=== PATIENT | male | born 1950 | race Caucasian/White ===

== ENCOUNTER 2023-04-09 15:25 | Emergency (ER) | payer MEDICARE, OTHER, SELFPAY ==
[2023-04-09 15:25] VITALS: BP 185/91; PULSE 68; RESP 14; TEMP 36.4; O2SAT 99
--- NOTE | 2023-04-09 15:28 | DI.CT.S_ITS ---
PROCEDURE: CT ANGIO HEAD AND NECK INDICATIONS: slurred speach TECHNIQUE: After the administration of intravenous contrast, 1 mm thick sections acquired from the aortic arch through the [place]. 3-dimensional jsiokzs-rmmwnaqsr-hqwfbxgsvp (MIP) and/or volume rendering reformats were acquired of the central intracranial vasculature and neck separately. For radiation dose reduction, the following was used: automated exposure control, adjustment of mA and/or kV according to patient size. COMPARISON: None. FINDINGS: Image quality: Diagnostic. BRAIN: CSF spaces: Ventricles are normal in size and shape. Basal cisterns are patent. No extra-axial fluid collections. Brain: No significant abnormality of the brain can be seen. Skull and face: Calvarium and facial bones appear intact, without suspicious lesions. Orbits appear normal. Sinuses: Sinuses and mastoids are clear. HEAD CT ANGIOGRAPHY: Anterior circulation: Intracranial internal carotid arteries are normal in size and flow. The flow within the paired anterior cerebral arteries is normal and symmetric. The flow within the middle cerebral arteries is normal and symmetric. The anterior communicating artery is seen. No aneurysms are seen. Posterior circulation: Visualized portions of the vertebral arteries demonstrate normal caliber, and join to form a normal appearing basilar artery. Flow within the posterior cerebral arteries is normal and symmetric. No aneurysms are seen. NECK CT ANGIOGRAPHY: Carotid system: The great vessels demonstrate a conventional anatomy as they arise from the aortic arch. The origins of the common carotid arteries appear patent. The common carotid arteries demonstrate normal caliber and courses. The bifurcation regions are both widely patent. The internal carotid arteries demonstrate normal calibers and courses. Posterior circulation: The origins of the vertebral arteries both appear widely patent. The more superior extracranial portions of both vertebral arteries also demonstrate normal courses and calibers. They join to form a normal appearing basilar artery. Soft tissues: Visualized neck soft tissues demonstrate no suspicious abnormalities. Bones: No suspicious bony lesions. Visualized cervical spine appears normally aligned. IMPRESSION: No large vessel occlusion. Findings discussed with Dr. Farias at 3:58 p.m. On 04/09/2023. Any quantitative measurements of stenosis were performed using NASCET criteria. Dictated by: Bautista Wolfe M.D. on 04/09/2023 at 15:56 Approved by: Bautista Wolfe M.D. on 04/09/2023 at 15:59
--- NOTE | 2023-04-09 15:28 | DI.CT.S_ITS ---
PROCEDURE: CT STROKE INDICATIONS: slurred speach TECHNIQUE: Noncontrast 4.5 mm thick angled axial sections acquired from the foramen magnum to the vertex, with coronal reformats. For radiation dose reduction, the following was used: automated exposure control, adjustment of mA and/or kV according to patient size. COMPARISON: None. FINDINGS: Image quality: Diagnostic. CSF spaces: Basal cisterns are patent. No extra-axial fluid collections. The ventricles are symmetric in size and shape. Brain: No intracranial bleeds or masses. There is cerebral volume loss for age, with resultant ventricular and sulcal prominence. Question a old lacunar infarct in the left basal ganglia. There are periventricular and deep white matter chronic small vessel ischemic changes. There is intracranial internal carotid artery atherosclerosis. Skull and face: Calvarium and visualized facial bones appear intact, without suspicious lesions. Sinuses: Visualized sinuses and mastoids are clear. IMPRESSION: No acute intracranial pathology. The result was discussed with Dr. Figueroa in ER. This study fulfills neurological imaging criteria for inclusion or exclusion of acute stroke therapies based on available published neurological guidelines. Dictated by: Corina Tena M.D. on 04/09/2023 at 15:44 Approved by: Corina Tena M.D. on 04/09/2023 at 15:47
[2023-04-09 15:31] VITALS: BP 185/91; PULSE 69; RESP 20; O2SAT 97
[2023-04-09 15:40] LABS: Add Manual Diff / Slide Review NO; Basophils Absolute Auto 100 /uL (0-100); Basophils Percent Auto 0.8 % (0-2); Eosinophils Absolute Auto 300 /uL (0-450); Eosinophils Percent Auto 4.5 % (2-4); Hematocrit 40.3 % (41-53); Hemoglobin 14.1 g/dL (13.5-17.5); Lymphocytes Absolute Auto 2800 /uL (1100-4500); Lymphocytes Percent Auto 40.2 % (25-40); Mean Corpuscular HGB Conc 34.9 % (30-36); Mean Corpuscular Volume 88.8 fL (80-100); Monocytes Absolute Auto 800 /uL (0-900); Monocytes Percent Auto 11.2 % (3-14); Neutrophils Absolute Auto 3000 /uL (1500-7000); Neutrophils Percent Auto 43.3 % (50-75); Platelet Count 193 X10^3/uL (150-400); Red Blood Cell Count 4.54 X10^6/uL (4.5-5.9); Red Cell Distribution Width 13.6 % (11.6-14.8); White Blood Cell Count 6.9 X10^3/uL (4.5-11.0)
[2023-04-09 15:51] VITALS: BP 184/90; PULSE 73; RESP 23; O2SAT 99
--- NOTE | 2023-04-09 15:51 | ED.NEUROSD ---
HPI - Neuro Symptoms/Deficit General Chief Complaint: Neuro Symptoms/Deficit Stated Complaint: states stroke hx of stroke Time Seen by Provider: 04/09/23 15:28 Source: patient and family Mode of arrival: Wheelchair History of Present Illness HPI Narrative: Patient is a 72-year-old male. Has had a history of a stroke several years ago. No residual deficits from that. Has a history of coronary artery disease. Had a coronary artery bypass graft several years ago as well. Currently takes no prescribed medications. He is doing ?metal chelation ?therapy under the care of his doctor. He was at his normal state of health. He was at lunch when he states he had a fairly sudden onset of coordination issues with his left arm in his left leg. He states he felt like he was leaning to the left. There was no reported change in speech. No facial droop. He denies headache. No vision changes. Arrived in the emergency department approximately 15 minutes after the onset of his symptoms. His prior stroke included symptoms with his left eye but she does not have today. He denies chest pain or shortness of breath. Patient is not on blood thinners. No recent surgery. No history of head bleeds. On Anticoagulants: No Related Data Home Medications Medication Instructions Recorded Confirmed No Known Home Medications 04/09/23 04/09/23 Allergies Allergy/AdvReac Type Severity Reaction Status Date / Time No Known Drug Allergies Allergy Verified 04/09/23 15:34 Review of Systems Review of Systems ROS Unobtainable: All systems reviewed & are unremarkable except as noted in HPI and below Hematologic/Lymphatic On Anticoagulants: No Patient History Medical History Coronary artery disease Social History Smoking Status: Never smoker Smoking Status: Never smoker alcohol intake frequency: 0-2 drinks per day Substance Use Type: does not use Exam Initial Vital Signs Initial Vital Signs: Vital Signs Temperature 97.6 F 04/09/23 15:25 Pulse Rate 68 04/09/23 15:25 Respiratory Rate 14 04/09/23 15:25 Blood Pressure 185/91 H 04/09/23 15:25 Pulse Oximetry 99 04/09/23 15:25 Oxygen Delivery Method Room Air 04/09/23 15:25 Const General: cooperative, comfortable and No ill appearing HENNV Head: normal to inspection and normocephalic Resp Effort & Inspection: normal respiratory effort Auscultation: clear to auscultation bilaterally Cardio Rate: regular rate GI Inspection: normal to inspection and non-distended Skin General: no rashes or lesions noted Neuro General: patient alert, patient awake, patient oriented x3 and moves all extremities Cranial Nerves: CN's II-XI intact bilaterally Cognition: normal cognition Speech: speech normal Extrem General: normal to inspection and capillary refill normal Psych Appearance: grossly normal and well kempt Scores GCS [place] coma scale eye opening: Spontaneous Sherri coma scale verbal response: Orientated [place] coma scale motor response: Obey commands Sherri coma scale total score: 15 NIH Stroke Scale Level of Conciousness: Alert, keenly responsive Ask month/age: Answers both questions correctly. Open/close eyes, close hand: Performs both tasks correctly Best gaze horizontal: Normal Visual lucero: No visual loss Facial palsy: Normal symetrical movement Left arm drift: No drift for full 10 sec Right arm drift: No drift for full 10 sec Left leg drift: No drift for full 5 sec Right leg drift: No drift for full 5 sec Limb ataxia: Present in two limbs Sensory on face/arms/legs: Normal, no sensory loss Best language: No aphasia, normal Dysarthria: Normal Extinction or inattention: No abnormality Total NIH Stroke scale score: 2 Course Orders Ordered: ED Orders 04/09/23 15:[address] angio head and neck Stat 04/09/23 15:29 EKG-12 Lead Stat 04/09/23 15:35 Complete Blood Count AUTO DIFF Stat Comprehensive Metabolic Panel Stat Ethanol (ETOH) Stat Lipase Stat PTT Partial Thromboplastin Froylan Stat Prothrombin Time INR Stat Troponin & CK Cardiac Panel Stat Discontinued Medications Sodium Chloride (Normal Saline 0.9%) 1,000 mls @ 1,000 mls/hr IV BOLUS ONE Stop: 04/09/23 16:28 Last Admin: 04/09/23 16:03 Dose: 1,000 mls/hr Documented By: CONNIE Vital Signs Vital signs: Vital Signs - 8 hr 04/09/23 15:25 04/09/23 15:31 04/09/23 15:31 Temperature 97.6 F Pulse Rate 68 69 Respiratory Rate 14 20 Blood Pressure 185/91 H 185/91 H Pulse Oximetry 99 97 Oxygen Delivery Method Room Air 04/09/23 15:51 04/09/23 15:51 04/09/23 16:00 Temperature Pulse Rate 73 Respiratory Rate 23 Blood Pressure 184/90 H 160/85 H Pulse Oximetry 99 Oxygen Delivery Method 04/09/23 16:00 04/09/23 16:30 Temperature Pulse Rate 69 67 Respiratory Rate 16 13 Blood Pressure Pulse Oximetry 97 98 Oxygen Delivery Method MDM - Neuro Symptoms/Deficit Lab Data Attestation: I reviewed the patient's lab results. 04/09/23 15:35 04/09/23 15:35 Labs: Lab Results 04/09/23 Range/Units 15:35 WBC 6.9 (4.5-11.0) X10^3/uL RBC 4.54 (4.5-5.9) X10^6/uL Hgb 14.1 (13.5-17.5) g/dL Hct 40.3 L (41-53) % MCV 88.8 (80-100) fL MCH 31.0 (26-34) PG MCHC 34.9 (30-36) % RDW 13.6 (11.6-14.8) % Plt Count 193 (150-400) X10^3/uL Neut % (Auto) 43.3 L (50-75) % Lymph % (Auto) 40.2 H (25-40) % [place] % (Auto) 11.2 (3-14) % Eos % (Auto) 4.5 H (2-4) % Baso % (Auto) 0.8 (0-2) % Neut # (Auto) 3000 (9722-5471) /uL Lymph # (Auto) 2800 (5224-1456) /uL [place] # (Auto) 800 (0-900) /uL Eos # (Auto) 300 (0-450) /uL Baso # (Auto) 100 (0-100) /uL PT 11.7 (9.4-12.5) SECONDS INR 1.0 (0.9-1.3) APTT 30 (25.1-36.5) SECONDS Sodium 138 (137-145) mmol/L Potassium 4.0 (3.4-5.1) mmol/L Chloride 104 (98-107) mmol/L Carbon Dioxide 26 (22-32) mmol/L BUN 19 (9-20) mg/dL Creatinine 0.90 (0.66-1.25) mg/dL Estimated GFR > 60 (>60) mL/min BUN/Creatinine Ratio 21.1 (6-22) Glucose 134 H (80-110) mg/dL Calcium 9.2 (8.4-10.2) mg/dL Total Bilirubin 0.5 (0.2-1.3) mg/dL AST 22 (17-59) IU/L ALT 18 (<50) IU/L Alkaline Phosphatase 55 (38-126) U/L Total Creatine Kinase 62 (55-170) U/L Troponin I < 0.012 (0.01-0.034) ng/mL Total Protein 7.9 (6.3-8.2) g/dL Albumin 4.1 (3.5-5.0) g/dL Globulin 3.8 (1.7-4.1) g/dL Albumin/Globulin Ratio 1.1 (1.0-2.8) Lipase 76 (23-300) U/L Ethyl Alcohol < 10 ( - 10) mg/dL Point of Care Testing Glucose POC [address] scan - head: Radiologist's Impression: PROCEDURE: CT STROKE INDICATIONS: slurred speach TECHNIQUE: Noncontrast 4.5 mm thick angled axial sections acquired from the foramen magnum to the vertex, with coronal reformats. For radiation dose reduction, the following was used: automated exposure control, adjustment of mA and/or kV according to patient size. COMPARISON: None. FINDINGS: Image quality: Diagnostic. CSF spaces: Basal cisterns are patent. No extra-axial fluid collections. The ventricles are symmetric in size and shape. Brain: No intracranial bleeds or masses. There is cerebral volume loss for age, with resultant ventricular and sulcal prominence. Question a old lacunar infarct in the left basal ganglia. There are periventricular and deep white matter chronic small vessel ischemic changes. There is intracranial internal carotid artery atherosclerosis. Skull and face: Calvarium and visualized facial bones appear intact, without suspicious lesions. Sinuses: Visualized sinuses and mastoids are clear. IMPRESSION: No acute intracranial pathology. The result was discussed with Dr. Figueroa in ER. This study fulfills neurological imaging criteria for inclusion or exclusion of acute stroke therapies based on available published neurological guidelines. CTA - brain/neck: Radiologist's Impression: PROCEDURE: CT ANGIO HEAD AND NECK INDICATIONS: slurred speach TECHNIQUE: After the administration of intravenous contrast, 1 mm thick sections acquired from the aortic arch through the [place]. 3-dimensional dyxviof-cxevuitid-pnwdheaaus (MIP) and/or volume rendering reformats were acquired of the central intracranial vasculature and neck separately. For radiation dose reduction, the following was used: automated exposure control, adjustment of mA and/or kV according to patient size. COMPARISON: None. FINDINGS: Image quality: Diagnostic. BRAIN: CSF spaces: Ventricles are normal in size and shape. Basal cisterns are patent. No extra-axial fluid collections. Brain: No significant abnormality of the brain can be seen. Skull and face: Calvarium and facial bones appear intact, without suspicious lesions. Orbits appear normal. Sinuses: Sinuses and mastoids are clear. HEAD CT ANGIOGRAPHY: Anterior circulation: Intracranial internal carotid arteries are normal in size and flow. The flow within the paired anterior cerebral arteries is normal and symmetric. The flow within the middle cerebral arteries is normal and symmetric. The anterior communicating artery is seen. No aneurysms are seen. Posterior circulation: Visualized portions of the vertebral arteries demonstrate normal caliber, and join to form a normal appearing basilar artery. Flow within the posterior cerebral arteries is normal and symmetric. No aneurysms are seen. NECK CT ANGIOGRAPHY: Carotid system: The great vessels demonstrate a conventional anatomy as they arise from the aortic arch. The origins of the common carotid arteries appear patent. The common carotid arteries demonstrate normal caliber and courses. The bifurcation regions are both widely patent. The internal carotid arteries demonstrate normal calibers and courses. Posterior circulation: The origins of the vertebral arteries both appear widely patent. The more superior extracranial portions of both vertebral arteries also demonstrate normal courses and calibers. They join to form a normal appearing basilar artery. Soft tissues: Visualized neck soft tissues demonstrate no suspicious abnormalities. Bones: No suspicious bony lesions. Visualized cervical spine appears normally aligned. IMPRESSION: No large vessel occlusion. Findings discussed with Dr. Farias at 3:58 p.m. On 04/09/2023. Any quantitative measurements of stenosis were performed using NASCET criteria. ECG Data Attestation: I personally reviewed and interpreted this ECG as follows: Interpretation: Sinus rhythm Ventricular rate 68 Normal axis Normal QRS Normal QTC No ST T wave changes MDM Narrative Medical decision making narrative: Patient did arrive within the window for tPA. Head CT and CTA of the head neck are both unremarkable and show no acute pathology. Patient was hypertensive with a systolic blood pressure 185 upon arrival. Initial NIH score was 2. This was because he had difficulty with ouauaq-ql-xdro with his left hand and dlxd-zn-tfbj with his left lower extremity. He was able to complete these maneuvers however it was a significant difference between the right. He also expressed light sensation differences to the left side of his face compared to the right. I did discuss the case with Dr. chavez stroke Neurology at the [facility]. She recommended that we ambulate the patient. If he was able to ambulate they would not recommend tPA given his presentation in his NIH score however if he had significant difficulty ambulating then despite his low NIH score treatment with tPA would potentially be warranted. I went to re-evaluate the patient. His left upper extremity left lower extremity symptoms have greatly improved. He was now able to do ddzuwu-tt-bjzm and exkn-tk-blbv with minimal difficulty. He was also able to ambulate around the bed. He states he still felt somewhat weak on his left side but thought that it was much improved. We would a discussion about tPA. At this point feel that tPA is not warranted and the risks outweigh any sort of benefit. The patient and his agree. His blood pressure also improved. At this point I recommended admission to the hospital for further evaluation to include an MRI. The patient stated that he did not want to be admitted to the hospital. He states he felt much better. He was made abundantly clear to the patient and his that I could not tell him that he did not have a stroke. Also other possibilities to include hypertensive emergency/TIA. Patient expressed understanding of this and he did not want admitted to the hospital. Recommended that he start on aspirin and Plavix. Patient states that he would take an aspirin but did not want to take Plavix. Apparently he has been on this medication in the past and he is had some GI issues. He was concerned about the side effects of this medication. Patient is alert and oriented x3. GCS of 15. Not clinically intoxicated Discussions were had with nursing in the room and also at bedside. Patient did sign against medical advice paperwork. He was informed that he could return to the emergency department at any point if he wished. I do feel the patient has capacity to make decisions. I did advise that he contact his primary doctor for follow-up as well. Discharge Plan Departure Patient Disposition: Left Against Medical Advice Clinical Impression: Left-sided weakness Activity Restrictions/Additional Instructions: Despite our discussions and our concerns about the fact that you potentially had a stroke that brought you in the emergency department today you have opted to leave against medical advice. I do recommend that you contact your primary doctor for a follow-up. In this situation we would recommend that you start taking an aspirin on a daily basis. We also recommended that she start taking Plavix but you have opted not to take this medication as well. You do require further evaluation to include an MRI of your brain. Please return to the emergency department at any point to complete your workup. Prescriptions: No Action No Known Home Medications Stand Alone Forms: Patient Portal/API, Against Medical Advice
[2023-04-09 15:57] LABS: Prothrombin Time 11.7 SECONDS (9.4-12.5)
[2023-04-09 16:00] VITALS: BP 160/85; PULSE 69; RESP 16; O2SAT 97
[2023-04-09 16:00] LABS: PTT Partial Thromboplastin Tim 30 SECONDS (25.1-36.5)
[2023-04-09 16:01] LABS: Alanine Aminotransferase 18 IU/L (<50); Albumin 4.1 g/dL (3.5-5.0); Albumin Globulin Ratio 1.1 (1.0-2.8); Alkaline Phosphatase 55 U/L (38-126); Aspartate Aminotransferase 22 IU/L (17-59); BUN Creatinine Ratio 21.1 (6-22); Bilirubin Total 0.5 mg/dL (0.2-1.3); Blood Urea Nitrogen 19 mg/dL (9-20); Calcium 9.2 mg/dL (8.4-10.2); Carbon Dioxide 26 mmol/L (22-32); Chloride 104 mmol/L (98-107); Creatine Kinase 62 U/L (55-170); Estimated Glomerular Filt Rate > 60 mL/min (>60); Ethanol (ETOH) < 10 mg/dL; Globulin 3.8 g/dL (1.7-4.1); Glucose 134 mg/dL (80-110); HEMOLYSIS < 15 (0-50); Lipase 76 U/L (23-300); Sodium 138 mmol/L (137-145); Total Protein 7.9 g/dL (6.3-8.2)
[2023-04-09] MEDS: SODIUM CHLORIDE 0.9% 1,000 ML 1000 ML IV (16:03)
[2023-04-09 16:12] LABS: Troponin I < 0.012 ng/mL (0.01-0.034)
[2023-04-09 16:30] VITALS: PULSE 67; RESP 13; O2SAT 98
== END 2023-04-09 16:53 | disposition left against medical advice (07) ==
PROVIDERS: Emergency Provider Emergency Medicine; Family Provider Nurse Practitioner
DX: R53.1 Weakness (principal); R47.81 Slurred speech; R29.702 NIHSS score 2; Z86.73 Personal history of transient ischemic attack (TIA), and cerebral infarction without residual deficits
CPT/HCPCS: 36415; 70450; 70496; 70498; 80053; 80320; 82550; 82962; 83690; 84484; 85025; 85610; 85730; 93005; 93010; 99284